=== PATIENT | female | born 1955 | race American Indian/Alaskan Native ===

== ENCOUNTER 2016-12-10 20:24 | Emergency (ER) | payer OTHER ==
[2016-12-11] MEDS ORDERED: ZOFRAN IV ONE (00:19)
[2016-12-11] MEDS ORDERED: MORPHINE IV ONE ×2 (00:19→02:21)
[2016-12-11] MEDS ORDERED: NACL 0.9% 500 ML 500 ML IV ONE (00:20)
[2016-12-11] MEDS ORDERED: CLEOCIN 600 MG/50 mL 600 MG/50 ML BAG IV ONE (00:20)
--- NOTE | 2016-12-11 00:25 | Emergency Department Report ---
ED ENT HPI - General Chief complaint: Dental/Oral Stated complaint: TOOTHACHE/GUM PAIN Time Seen by Provider: 12/11/16 00:09 Source: patient Mode of arrival: Ambulatory Limitations: No Limitations - History of Present Illness Initial comments: 61-year-old female past medical history depression, diabetes, hypertension presents with complaint of right-sided jaw pain/gumline pain and 5 days of rash worsening to left lower extremity. Patient is awake appears to be in pain, states that her right side, as well as her left leg are painful. Denies any fevers or chills. Denies any chest pain no abdominal pain no shortness of breath. Patient visibly pointing at her right tooth/gumline. Patient missing several teeth wears dentures which she has removed. Denies any trauma to the jaw, no recent dental procedures. Asked the patient if she has a morphine allergy she says she does not have. Awake alert and oriented 3 but appears to be very uncomfortable during clinical exam. MD complaint: other (right sided jaw pain/oral pain and left lower extremity rash/discomfort.) Onset/Timin -: days(s) Location: tooth # (patient is missing several teeth, has severe periodontal disease. Indicating she has pain in right side lower gum region where tooth 28 would typically be) Severity: severe Severity scale (0 -10): 8 Quality: sharp Consistency: constant Context- Dental: history of dental caries, poor dental care Associated Symptoms: gum swelling - Related Data Previous Rx's Medication Instructions Recorded Last Taken Type Azithromycin [Zithromax] 500 mg PO QDAY #3 tablet 06/16/14 Unknown Rx Oxycodone HCl/Acetaminophen 1 each PO Q6HR PRN #14 tablet 06/16/14 Unknown Rx [Percocet 7.5-325 mg] Acetaminophen/Codeine [Tylenol 1 tab PO Q6H PRN #10 tab 12/11/16 Unknown Rx /Codeine # 3 tab] Clindamycin [Clindamycin CAP] 300 mg PO Q6H #28 capsule 12/11/16 Unknown Rx Allergies Allergy/AdvReac Type Severity Reaction Status Date / Time ketorolac tromethamine Allergy Anaphylaxis Verified 06/16/14 10:01 [From Toradol] nalbuphine HCl [From Nubain] Allergy Rash Verified 06/16/14 10:01 Sulfa (Sulfonamide Allergy Rash Verified 06/16/14 10:01 Antibiotics) morphine AdvReac Unknown Verified 06/16/14 10:01 ED Dental HPI - General Chief complaint: Dental/Oral Stated complaint: TOOTHACHE/GUM PAIN Time Seen by Provider: 12/11/16 00:09 Source: patient Mode of arrival: Ambulatory Limitations: No Limitations - Related Data Previous Rx's Medication Instructions Recorded Last Taken Type Azithromycin [Zithromax] 500 mg PO QDAY #3 tablet 06/16/14 Unknown Rx Oxycodone HCl/Acetaminophen 1 each PO Q6HR PRN #14 tablet 06/16/14 Unknown Rx [Percocet 7.5-325 mg] Acetaminophen/Codeine [Tylenol 1 tab PO Q6H PRN #10 tab 12/11/16 Unknown Rx /Codeine # 3 tab] Clindamycin [Clindamycin CAP] 300 mg PO Q6H #28 capsule 12/11/16 Unknown Rx Allergies Allergy/AdvReac Type Severity Reaction Status Date / Time ketorolac tromethamine Allergy Anaphylaxis Verified 06/16/14 10:01 [From Toradol] nalbuphine HCl [From Nubain] Allergy Rash Verified 06/16/14 10:01 Sulfa (Sulfonamide Allergy Rash Verified 06/16/14 10:01 Antibiotics) morphine AdvReac Unknown Verified 06/16/14 10:01 ED Review of Systems ROS: Stated complaint: TOOTHACHE/GUM PAIN Other details as noted in HPI Constitutional: denies: chills, fever Eyes: denies: eye pain, eye discharge, vision change ENT: dental pain, other. denies: ear pain, throat pain Respiratory: denies: cough, shortness of breath, wheezing Cardiovascular: denies: chest pain, palpitations Endocrine: no symptoms reported Gastrointestinal: denies: abdominal pain, nausea, diarrhea Genitourinary: denies: urgency, dysuria, discharge Musculoskeletal: denies: back pain, joint swelling, arthralgia Skin: as per HPI, other (left lower extremity anterior redness/erythema on garcai) . denies: rash, lesions Neurological: denies: headache, weakness, paresthesias Psychiatric: denies: anxiety, depression Hematological/Lymphatic: denies: easy bleeding, easy bruising ED Past Medical Hx - Past Medical History Previous Medical History?: Yes Hx Hypertension: Yes Hx Diabetes: Yes - Surgical History Past Surgical History?: Yes Hx Cholecystectomy: Yes Hx Appendectomy: Yes Additional Surgical History: tubal ligation. hyst - Social History Smoking Status: Never Smoker Substance Use Type: None - Medications Home Medications: Home Medications Medication Instructions Recorded Confirmed Last Taken Type Azithromycin [Zithromax] 500 mg PO QDAY #3 tablet 06/16/14 Unknown Rx Oxycodone HCl/Acetaminophen 1 each PO Q6HR PRN #14 tablet 06/16/14 Unknown Rx [Percocet 7.5-325 mg] Acetaminophen/Codeine [Tylenol 1 tab PO Q6H PRN #10 tab 12/11/16 Unknown Rx /Codeine # 3 tab] Clindamycin [Clindamycin CAP] 300 mg PO Q6H #28 capsule 12/11/16 Unknown Rx ED Physical Exam - General Limitations: No Limitations General appearance: alert, in no apparent distress - Head Head exam: Present: atraumatic, normocephalic - Eye Eye exam: Present: normal appearance, PERRL, EOMI - ENT ENT exam: Present: mucous membranes moist, other (patient has severe periodontal disease missing multiple teeth no palpable or visible abscess on face or inside gum line the patient indicating that her right inner gum line is very painful.) - Expanded ENT Exam Expanded Mouth exam: Present: other (there is no tongue swelling and no swelling underneath tongue no induration and floor of mouth signs of Siva's angina) Teeth exam: Present: dental caries (patient has some anterior lower incisors with severe periodontal disease), dental tenderness # (she denies gumline tenderness in the region of tooth #28 however there are no teeth in this region) - Neck Neck exam: Present: normal inspection, full ROM - Respiratory Respiratory exam: Present: normal lung sounds bilaterally. Absent: respiratory distress - Cardiovascular Cardiovascular Exam: Present: regular rate, normal rhythm. Absent: systolic murmur, diastolic murmur, rubs, gallop - GI/Abdominal GI/Abdominal exam: Present: soft, normal bowel sounds - Extremities Exam Extremities exam: Present: normal inspection - Expanded Lower Extremity Exam Left Upper Leg exam: Present: normal inspection, full ROM Knee exam: Present: normal inspection, full ROM Lower Leg exam: Present: tenderness (patient has erythema anterior garcia from pretibial region almost down to the ankle, borders marked) Ankle exam: Present: normal inspection, full ROM Foot/Toe exam: Present: normal inspection - Back Exam Back exam: Present: normal inspection - Neurological Exam Neurological exam: Present: alert, oriented X3 - Psychiatric Psychiatric exam: Present: normal affect, normal mood - Skin Skin exam: Present: warm, dry, intact, normal color. Absent: rash ED Course Vital Signs 12/10/16 12/11/16 23:04 04:36 Temperature 98.1 F 99.2 F Pulse Rate 104 H 72 Respiratory 20 12 Rate Blood Pressure 146/92 172/116 [Right] O2 Sat by Pulse 99 98 Oximetry ED Medical Decision Making - Lab Data Result diagrams: 12/11/16 00:35 12/11/16 00:35 - Medical Decision Making A/P: Jaw pain/dental oral pain, left lower extremity cellulitis, elevated lactic acid 1-patient given dose of IV clindamycin 500 mL normal saline, dose of morphine 2-initial CT infiltrated IV in patient left hand no significant edema in hand, minimal pain to palpation skin appears normal 3-I placed an external jugular 20-gauge IV in patient's right-sided neck to administer further meds and to obtain contrast Ct study. However at this point during clinical progress patient informed me that she had to leave in order to take care of her granddaughter who was at home with her elderly mother. I advised patient to call and make arrangements for her family so that she may stay in the hospital for administration of IV antibiotics and to evaluate her oral cavity and jaw with a CAT scan with contrast. However the patient stated that she needed to leave in order to attend to her domestic matters. I explained to the patient that I was also concerned that she had extravasation of IV contrast into her hand and which requires monitoring for any possible adverse effects including necrosis skin and local tissue to IV. Patient stated she understood my concerns but still needed to leave the hospital. I had this discussion with the patient's in front of BRITTNEY Vazquez. Patient was awake alert and oriented during this conversation. Fully lucid and expressed understanding of the discussion that I had with her. I advised patient that she is at risk for sepsis and if not treated for these conditions. Patient elected to leave AGAINST MEDICAL ADVICE. 4-I will give patient oral clindamycin prescription and short course of pain medicine. Area of cellulitis and borders marked left lower extremity. 5- case discussed with Dr. Graham 6-patient stated that she would go home and make arrangements for her family and then return to the hospital Critical care attestation.: If time is entered above; I have spent that time in minutes in the direct care of this critically ill patient, excluding procedure time. ED Disposition Clinical Impression: Pain in oral cavity, Cellulitis of left leg Disposition: LEFT AGAINST MEDICAL ADVICE Is pt being admited?: No Does the pt Need Aspirin: No Condition: Stable Instructions: Dental Caries (ED), Cellulitis (ED), Against Medical Advice (ED) Additional Instructions: I advised patient to return to the hospital as soon as possible for management of her oral pain as well as left leg cellulitis. Patient left AGAINST MEDICAL ADVICE Prescriptions: Acetaminophen/Codeine [Tylenol /Codeine # 3 tab] 1 tab PO Q6H PRN #10 tab PRN Reason: Pain Clindamycin [Clindamycin CAP] 300 mg PO Q6H #28 capsule Referrals: REGAN KINCAID MD [Staff Physician] - 3-5 Days Forms: AMA Form Time of Disposition: 04:19
[2016-12-11 01:02] LABS: Basophils % (Auto) 0.3 % (0.0-1.8); Hematocrit 29.8 % (30.3-42.9); Hemoglobin 9.4 gm/dl (10.1-14.3); Mean Corpuscular HGB Conc 32 % (30-34); Platelet Count 299 K/mm3 (140-440); Red Blood Count 4.65 M/mm3 (3.65-5.03); White Blood Count 10.4 K/mm3 (4.5-11.0)
[2016-12-11 01:04] LABS: Mean Corpuscular Hemoglobin 20 pg (28-32); Mean Corpuscular Volume 64 fl (79-97); Red Cell Distribution Width 22.2 % (13.2-15.2)
[2016-12-11 01:30] LABS: Blood Urea Nitrogen 22 mg/dL (7-17); Carbon Dioxide 20 mmol/L (22-30)
[2016-12-11 01:31] LABS: Anion Gap 25 mmol/L; Calcium 9.7 mg/dL (8.4-10.2); Chloride 91.4 mmol/L (98-107); Creatine Kinase 266 units/L (30-135); Glucose 143 mg/dL (65-100); Potassium 3.4 mmol/L (3.6-5.0); Sodium 133 mmol/L (137-145)
[2016-12-11] MEDS ORDERED: NACL ONE ×2 (01:50→02:48)
[2016-12-11 04:37] VITALS: BP 172/116
== END 2016-12-11 04:46 | disposition left against medical advice (07) ==
LOC: ED 20:24
DX: L03.116 Cellulitis of left lower limb (principal); K13.79 Other lesions of oral mucosa; I10 Essential (primary) hypertension; E11.9 Type 2 diabetes mellitus without complications; Z88.2 Allergy status to sulfonamides; Z88.5 Allergy status to narcotic agent; Z88.8 Allergy status to other drugs, medicaments and biological substances
CPT/HCPCS: 36415; 80048; 82140; 82550; 85025; 87040; 96365; 96375; 99283; J2270; J2405; J7040

== ENCOUNTER 2016-12-11 09:15 | Inpatient (IN) | payer OTHER ==
[2016-12-11] MEDS ORDERED: NACL 0.9% 1000 ML 1,000 ML IV ONE (10:44)
--- NOTE | 2016-12-11 10:51 | History and Physical Report ---
History of Present Illness Date of examination: 12/11/16 Date of admission: 12/11/16 Chief complaint: Left lower extremity swelling ,redness and pain Dental caries and gum pain History of present illness: Very pleasant 58-year-old -[place] female patient with significant past medical history of diabetes mellitus hypertension dyslipidemia seen by the ER physician last night and recommended admission however patient left AMA due to some personal issues Patient presented today with the complaints of left lower extremity redness swelling over the garcia since she fell and hurt herself 7 months ago patient also has dental caries with gum and jaw pain, patient has an appointment to see dentist. Patient denies any chest pain or shortness of breath Denies headache or dizziness Denies nausea vomiting or abdominal pain, no fever or chills Past History Past Medical History: diabetes, hypertension, other (h/o pulmonary tuberculosis) Past Surgical History: appendectomy, hysterectomy, Other (tubal ligation) Social history: lives with family, smoking, full code. denies: alcohol abuse, prescription drug abuse Family history: hypertension Medications and Allergies Allergies Allergy/AdvReac Type Severity Reaction Status Date / Time ketorolac tromethamine Allergy Anaphylaxis Verified 06/16/14 10:01 [From Toradol] nalbuphine HCl [From Nubain] Allergy Rash Verified 06/16/14 10:01 Sulfa (Sulfonamide Allergy Rash Verified 06/16/14 10:01 Antibiotics) morphine AdvReac Unknown Verified 06/16/14 10:01 Home Medications Medication Instructions Recorded Confirmed Last Taken Type Azithromycin [Zithromax] 500 mg PO QDAY #3 tablet 06/16/14 12/11/16 Unknown Rx Oxycodone HCl/Acetaminophen 1 each PO Q6HR PRN #14 tablet 06/16/14 Unknown Rx [Percocet 7.5-325 mg] Acetaminophen/Codeine [Tylenol 1 tab PO Q6H PRN #10 tab 12/11/16 12/11/16 Unknown Rx /Codeine # 3 tab] Benadryl CAP 25 mg PO Q6H 12/11/16 12/11/16 Unknown History Clindamycin [Clindamycin CAP] 300 mg PO Q6H #28 capsule 12/11/16 12/11/16 Unknown Rx Clopidogrel 75 mg PO DAILY 12/11/16 12/11/16 Unknown History Ferrous Sulfate 325 mg PO DAILY 12/11/16 12/11/16 Unknown History Hydralazine HCl [Apresoline TAB] 100 mg PO Q8H 12/11/16 12/11/16 Unknown History Levemir 20 units SQ QHS 12/11/16 12/11/16 Unknown History NovoLOG Flexpen 8 units SQ AC 12/11/16 12/11/16 Unknown History amLODIPine 10 mg PO DAILY 12/11/16 12/11/16 Unknown History Active Meds: Active Medications Sodium Chloride (Nacl 0.9% 1000 Ml) 1,000 mls @ 999 mls/hr IV BOLUS ONE Stop: 12/11/16 11:44 Vancomycin HCl 1,500 mg/ (Sodium Chloride) 500 mls @ 334 mls/hr IV ONCE ONE PRN Reason: Protocol Stop: 12/11/16 12:13 Piperacillin Sod/Tazobactam Sod (Zosyn/Ns 4.5gm/100ml) 4.5 gm in 100 mls @ 200 mls/hr IV Q6HR DAVONTE PRN Reason: Protocol Review of Systems Constitutional: no weight loss, no weight gain, no fever, no chills Ears, nose, mouth and throat: no nasal congestion, no nasal discharge Cardiovascular: no chest pain, no palpitations, no shortness of breath Respiratory: no cough with sputum, no shortness of breath Gastrointestinal: no abdominal pain, no nausea, no vomiting Genitourinary Female: no flank pain, no dysuria Musculoskeletal: no myalgias, no arthritis Integumentary: no rash, no lesions Neurological: no weakness, no parathesias, no seizures Psychiatric: no anxiety, no depression Endocrine: no cold intolerance, no heat intolerance, no polydipsia, no polyuria Hematologic/Lymphatic: no easy bruising, no easy bleeding Allergic/Immunologic: no urticaria, no allergic rhinitis Exam - Constitutional Vitals: Temp Pulse Resp BP Pulse Ox 98.2 F 94 H 18 150/82 98 12/11/16 09:48 12/11/16 09:48 12/11/16 10:37 12/11/16 09:48 12/11/16 10:37 General appearance: Present: no acute distress, well-nourished - EENT Eyes: Present: PERRL, EOM intact - Neck Neck: Present: supple, normal ROM - Respiratory Respiratory effort: normal Respiratory: negative: rales, rhonchi, wheezing - Cardiovascular Rhythm: regular Heart Sounds: Present: S1 & S2 - Extremities Extremities: no ischemia, pulses intact Extremity abnormal: erythema (left lower extremity cellulitis), other ( cellulitis left lower extremity) - Abdominal General gastrointestinal: Present: soft, non-tender, non-distended, normal bowel sounds - Integumentary Integumentary: Present: clear, warm - Musculoskeletal Musculoskeletal: strength equal bilaterally - Psychiatric Psychiatric: appropriate mood/affect, cooperative - Neurologic Neurologic: CNII-XII intact, moves all extremities Results - Labs CBC & Chem 7: 12/11/16 13:15 Assessment and Plan --Hypokalemia Replenish per protocol and monitor levels --Lactic acidosis/sepsis/SIRS Empiric antibiotics, cultures, supportive care --Cellulitis left leg Blood cultures, IV antibiotics, elevate the limbs Chest disease evaluation if needed --History of trauma 6 months ago History of fall, check x-ray lower extremity to rule out any fractures --Hypertension Moderate control, resume home antihypertensives, when necessary hydralazine --Type 2 diabetes mellitus Accu-Chek sliding scale coverage and ADA diet and insulin Check hemoglobin A1c Diabetic education if needed --History of pulmonary tuberculosis Follows with health Department, not on any medications at this point --Dental caries/gingivitis IV antibiotics and oral care, patient needs to see dental surgeon upon discharge --DVT prophylaxis With Lovenox This closely monitor the patient and adjust the management as needed Patient's condition treatment plan discussed in detail with the patient, family member at the bedside ER physician and the nurse --Full CODE STATUS Disposition admit to medical floor Possible discharge in 1-2 days if stable
--- NOTE | 2016-12-11 11:00 | Admit Criteria Form ---
Admission Criteria Documentation: SEPSIS and OTHER FEBRILE ILLNESS, W/O FOCAL INFECTION Clinical Indications for Admission to Inpatient Care ( Place 'X' for any and all applicable criteria): Admission is indicated for ANY ONE of the following (1)(2)(3)(4): [ ] I. Bacteremia [ ]II. Suspected or identified specific infection requiring hospitalization (eg, meningitis, endocarditis) [ ]III. Hemodynamic instability [ ]IV. Altered mental status [ ]V. Failure or unavailability of outpatient antimicrobial treatment [ ]. Hypoxemia [ ]VII. Seizures [ ]VIII. High-risk febrile neutropenia [ ]IX. Need for parenteral antibiotic in patient who is likely to abuse vascular access device (eg, injection drug user) [A](7) [ ]X. Temperature greater than 104.9 degrees F (40.5 degrees C) (oral) [ X]XI. Inpatient admission required rather than observation care because of ANY ONE of the following: [ X]1) Specific infection identified that is too severe for outpatient treatment or observation care trial [ ]2) Metabolic disorder (eg, hypoglycemia, hyperglycemia, metabolic acidosis) that is severe or persistent [ ]3) Temperature greater than 103.1 degrees F (39.5 degrees C) ( oral) that is not responsive to observation care treatment [ ]4) IV fluid to replace significant ongoing (eg, for over 24 hours) losses (> 3 L/m2 per day) [ ]5) Supplemental oxygen or respiratory treatments for over 24 hours that is performable only in acute inpatient setting [ ]6) Parenteral nutrition regimen need that must be implemented on inpatient basis [ ]7) Strict or protective (eg, laminar flow) isolation [ ]8) Other condition, treatment or monitoring requiring inpatient admission Extended stay beyond goal length of stay may be needed for(1)(3) [ ]a) Sepsis or septic shock(22) [ ]b) Positive blood cultures [ ]c) Insufficient oral intake [ ]d) High-risk febrile neutropenia(29)(30) [ ]e) Continued fever and clinical instability [ ]f) Clinically active comorbid illness (e.g,heart failure, renal failure , diabetes) The original [facility] [employer] content created by Danisha Abel has been revised. The portions of the content which have been revised are identified through the use of italic text or in bold, and Danisha Abel has neither reviewed nor approved the modified material. All other unmodified content is copyright [facility]. Please see references footnoted in the original [facility] edition 2016 Admission Criteria Met: Yes
[2016-12-11] MEDS ORDERED: VANCOMYCIN/NS 1 GM/250 ML 1 GM/250 ML BAG IV SCH (12:00)
[2016-12-11] MEDS ORDERED: VANCOMYCIN PHARMACY TO DOSE IV SCH (13:00)
[2016-12-11] MEDS ORDERED: VANCOMYCIN VIAL 1,500 MG in NACL 0.9% 500 ML 500 ML IV ONE (13:00)
[2016-12-11] MEDS ORDERED: BENADRYL IV ONE ×2 (13:38→17:00)
[2016-12-11] MEDS ORDERED: BENADRYL PO PRN (13:39)
[2016-12-11 13:55] LABS: Anion Gap 20 mmol/L; BUN/Creatinine Ratio 24.44; Blood Urea Nitrogen 22 mg/dL (7-17); Calcium 9.2 mg/dL (8.4-10.2); Carbon Dioxide 21 mmol/L (22-30); Chloride 97.1 mmol/L (98-107); Glucose 151 mg/dL (65-100); Potassium 3.3 mmol/L (3.6-5.0); Sodium 135 mmol/L (137-145)
[2016-12-11] MEDS ORDERED: LEVAQUIN 750MG/150ML 750 MG/150 ML BAG IV SCH (14:00)
[2016-12-11] MEDS ORDERED: TYLENOL #3 PO PRN (15:02)
--- NOTE | 2016-12-11 15:09 | XRay Report ---
Single view chest: History: Right PICC line placement. Findings: Normal cardiomediastinal silhouette. Trachea is midline. Tip of right PICC line in upper superior vena cava. No consolidation, pneumothorax or pleural effusion. Impression: No acute cardiopulmonary findings.
[2016-12-11] MEDS ORDERED: HYDRALAZINE HCL 100 MG PO SCH (15:15)
[2016-12-11] MEDS: APRESOLINE PO SCH ×2 (15:49→21:18)
[2016-12-11] MEDS: NACL 0.9% 1000 ML 1,000 ML IV SCH (15:50)
[2016-12-11] MEDS ORDERED: K-DUR PO ONE (16:00)
[2016-12-11] MEDS: MORPHINE IV PRN ×2 (16:32→21:17)
[2016-12-11] MEDS ORDERED: BANOPHEN ANTI-ITCH TP PRN (17:17)
[2016-12-11] MEDS: NOVOLOG SUB-Q SCH ×2 (17:22→23:21)
[2016-12-11] MEDS ORDERED: ZOSYN/NS 4.5GM/100ML 4.5 GM/100 ML VIAL IV SCH (18:00)
[2016-12-11] MEDS: BENADRYL PO PRN (21:17)
[2016-12-11] MEDS: PEPCID PO SCH (21:18)
[2016-12-11] MEDS: LOVENOX SUB-Q SCH (21:22)
--- NOTE | 2016-12-11 21:38 | Emergency Department Report ---
Entered by LAKESHIA DOUGLASS, acting as scribe for JESSIKA HILL NP. - General Chief complaint: Skin/Abscess/Foreign Body Stated complaint: LEG INFECTED Source: patient Mode of arrival: Wheelchair Limitations: No Limitations - History of Present Illness Initial comments: 61 year old female with a PMHx of depression, HTN, and IDDM presents to the ED c /o intermittent cellulites on left lower leg for 6 days. Patient states she fell 7 months ago and subsequently received an abrasion on left lower leg, which worsened 6 days ago. Patient was seen in this ED on 12/10/2016 and left AMA. Patient was told she needed to be admitted, but she left due to a family emergency. She was prescribed antibiotics, Clindamycin. Rates associated pain a 9/10 in severity. Denies purulent drainage, chest pain, SOB, fever, chills, nausea, vomiting, and abdominal pain. Patient also c/o dental caries. Associated symptom include gum pain, but she denies ear pain, eye pain, sore throat, and headache. Denies any trauma to jaw or recent dental procedures. Patient missing several teeth and wear dentures, which she removed. MD complaint: other (cellulitis) Onset/Timin -: days(s) Tetanus Up to Date: unsure Location: LLE (left lower leg) Severity: moderate Severity scale (0 -10): 9 Quality: aching Consistency: constant Improves with: none Worsens with: none Context: none Associated symptoms: denies other symptoms Treatments Prior to Arrival: none, antibiotic (Clindamycin) - Related Data Previous Rx's Medication Instructions Recorded Last Taken Type Azithromycin [Zithromax] 500 mg PO QDAY #3 tablet 06/16/14 Unknown Rx Oxycodone HCl/Acetaminophen 1 each PO Q6HR PRN #14 tablet 06/16/14 Unknown Rx [Percocet 7.5-325 mg] Acetaminophen/Codeine [Tylenol 1 tab PO Q6H PRN #10 tab 12/11/16 Unknown Rx /Codeine # 3 tab] Clindamycin [Clindamycin CAP] 300 mg PO Q6H #28 capsule 12/11/16 Unknown Rx Allergies Allergy/AdvReac Type Severity Reaction Status Date / Time ketorolac tromethamine Allergy Anaphylaxis Verified 06/16/14 10:01 [From Toradol] nalbuphine HCl [From Nubain] Allergy Rash Verified 06/16/14 10:01 Sulfa (Sulfonamide Allergy Rash Verified 06/16/14 10:01 Antibiotics) morphine AdvReac Unknown Verified 06/16/14 10:01 Abscess Boil HPI - HPI Chief Complaint: Skin/Abscess/Foreign Body Stated Complaint: LEG INFECTED Duration: 6 Days Location: Lower Extremity (left lower leg) Severity: Moderate History: Yes Pain, No Fever, No Purulent Drainage, No Numbness, No Foreign Body , No Previous History, No Insect Bite Home Medications: Previous Rx's Medication Instructions Recorded Last Taken Type Azithromycin [Zithromax] 500 mg PO QDAY #3 tablet 06/16/14 Unknown Rx Oxycodone HCl/Acetaminophen 1 each PO Q6HR PRN #14 tablet 06/16/14 Unknown Rx [Percocet 7.5-325 mg] Acetaminophen/Codeine [Tylenol 1 tab PO Q6H PRN #10 tab 12/11/16 Unknown Rx /Codeine # 3 tab] Clindamycin [Clindamycin CAP] 300 mg PO Q6H #28 capsule 12/11/16 Unknown Rx Allergies/Adverse Reactions: Allergies Allergy/AdvReac Type Severity Reaction Status Date / Time ketorolac tromethamine Allergy Anaphylaxis Verified 06/16/14 10:01 [From Toradol] nalbuphine HCl [From Nubain] Allergy Rash Verified 06/16/14 10:01 Sulfa (Sulfonamide Allergy Rash Verified 06/16/14 10:01 Antibiotics) morphine AdvReac Unknown Verified 06/16/14 10:01 ED Review of Systems Comment: All other systems reviewed and negative Constitutional: denies: chills, fever Eyes: denies: eye pain, eye discharge, vision change ENT: dental pain. denies: ear pain, throat pain Respiratory: denies: cough, shortness of breath, wheezing Cardiovascular: denies: chest pain, palpitations Endocrine: no symptoms reported Gastrointestinal: denies: abdominal pain, nausea, vomiting, diarrhea Genitourinary: denies: urgency, dysuria, discharge Musculoskeletal: denies: back pain, joint swelling, arthralgia Skin: as per HPI, other (left lower extremity anterior redness/erythema on garcia) . denies: rash, lesions Neurological: denies: headache, weakness, paresthesias Psychiatric: denies: anxiety, depression Hematological/Lymphatic: denies: easy bleeding, easy bruising ED Past Medical Hx - Past Medical History Hx Hypertension: Yes Hx Diabetes: Yes - Surgical History Hx Cholecystectomy: Yes Hx Appendectomy: Yes Additional Surgical History: tubal ligation. hyst - Social History Smoking Status: Current Every Day Smoker Substance Use Type: None - Medications Home Medications: Home Medications Medication Instructions Recorded Confirmed Last Taken Type Azithromycin [Zithromax] 500 mg PO QDAY #3 tablet 06/16/14 Unknown Rx Oxycodone HCl/Acetaminophen 1 each PO Q6HR PRN #14 tablet 06/16/14 Unknown Rx [Percocet 7.5-325 mg] Acetaminophen/Codeine [Tylenol 1 tab PO Q6H PRN #10 tab 12/11/16 Unknown Rx /Codeine # 3 tab] Clindamycin [Clindamycin CAP] 300 mg PO Q6H #28 capsule 12/11/16 Unknown Rx ED Physical Exam - General Limitations: No Limitations General appearance: alert, in no apparent distress - Head Head exam: Present: atraumatic, normocephalic - Eye Eye exam: Present: normal appearance, PERRL, EOMI - ENT ENT exam: Present: mucous membranes moist, other (patient has severe periodontal disease missing multiple teeth no palpable or visible abscess on face or inside gum line the patient indicating that her right inner gum line is very painful) - Expanded ENT Exam Expanded Mouth exam: Present: other (there is no tongue swelling and no swelling underneath tongue no induration and floor of mouth signs of Siva's angina) Teeth exam: Present: dental caries (patient has some anterior lower incisors with severe periodontal disease), dental tenderness # (she denies gumline tenderness in the region of tooth #28 however there are no teeth in this region) - Neck Neck exam: Present: normal inspection, full ROM - Respiratory Respiratory exam: Present: normal lung sounds bilaterally. Absent: respiratory distress - Cardiovascular Cardiovascular Exam: Present: regular rate, normal rhythm. Absent: systolic murmur, diastolic murmur, rubs, gallop - GI/Abdominal GI/Abdominal exam: Present: soft, normal bowel sounds - Extremities Exam Extremities exam: Present: normal inspection, other (cellulitic abrasion on left lower leg) - Expanded Lower Extremity Exam Left Upper Leg exam: Present: normal inspection, full ROM Knee exam: Present: normal inspection, full ROM Lower Leg exam: Present: tenderness (patient has erythema anterior garcia from pretibial region almost down to the ankle, borders marked) Ankle exam: Present: normal inspection, full ROM Foot/Toe exam: Present: normal inspection Neuro vascular tendon exam: Present: no vascular compromise Gait: Positive: observed and normal - Back Exam Back exam: Present: normal inspection - Neurological Exam Neurological exam: Present: alert, oriented X3, CN II-XII intact, normal gait - Psychiatric Psychiatric exam: Present: normal affect, normal mood - Skin Skin exam: Present: warm, dry, intact, normal color. Absent: rash ED Course Vital Signs 12/11/16 12/11/16 12/11/16 09:48 10:37 11:46 Temperature 98.2 F Pulse Rate 94 H 98 H Respiratory 18 18 18 Rate Blood Pressure 150/82 Blood Pressure 148/76 [Left] O2 Sat by Pulse 96 98 96 Oximetry - Reevaluation(s) Reevaluation #1: 12/11/16 11:18 Dr. Sandoval is aware of patient and admission. Reevaluation #2: 12/11/16 11:18 Dr. Woody has accepted the patient to her services. Wants vancomycin and Zosyn IV started in the ED. Reevaluation #3: 12/11/16 11:53 RN Rowena put a 24g IV lock to left breast/chest area. ED Medical Decision Making - Medical Decision Making Ed course: This is a 61-year-old female that presents with cellulitis to the left leg 1- patient was seen last night and was told to be admitted for sepsis by Dr. Graham. Patient left AMA and return to be admitted. Dr. Sandoval aware of the patient in admission. Patient admitted to Dr. Woody services. Dr. Woody requested for vancomycin and Zosyn IV in the ED to be administered. 2- At this time the patient does not seem toxic or ill in apperance . No signs of distress noted. Patient agrees to treatment plan with no further questions noted. ED Disposition Clinical Impression: Cellulitis Disposition: OP ADMITTED IP TO THIS HOSP Is pt being admited?: Yes Does the pt Need Aspirin: No Condition: Stable This documentation as recorded by the EVONNE barclay JASMINE,accurately reflects the service I personally performed and the decisions made by ,JESSIKA HILL NP.
[2016-12-11] MEDS: LEVEMIR SUB-Q SCH (23:22)
[2016-12-11] MEDS: PERCOCET 5/325 PO PRN (23:27)
[2016-12-12] MEDS ORDERED: BENADRYL PO ONE (00:22)
[2016-12-12] MEDS: ZOSYN/NS 4.5GM/100ML 4.5 GM/100 ML VIAL IV SCH ×4 (04:48→23:36)
[2016-12-12] MEDS: MORPHINE IV PRN ×2 (04:50→12:00)
[2016-12-12] MEDS: APRESOLINE PO SCH ×3 (05:05→21:00)
[2016-12-12] MEDS: VANCOMYCIN/NS 1 GM/250 ML 1 GM/250 ML BAG IV SCH ×2 (06:54→17:39)
[2016-12-12] MEDS: PERCOCET 5/325 PO PRN (08:19)
[2016-12-12] MEDS: NOVOLOG SUB-Q SCH ×4 (08:20→22:00)
[2016-12-12] MEDS: BENADRYL PO PRN (08:31)
[2016-12-12] MEDS ORDERED: NON-FORMULARY (Amlodipine 10 MG) PO SCH (10:00)
[2016-12-12] MEDS ORDERED: NON-FORMULARY (Clopidogrel 75 MG) PO SCH (10:00)
[2016-12-12] MEDS: PEPCID PO SCH ×2 (10:32→21:00)
[2016-12-12] MEDS: NORVASC PO SCH (10:32)
[2016-12-12] MEDS ORDERED: MORPHINE IV PRN (11:05)
--- NOTE | 2016-12-12 11:10 | XRay Report ---
LEFT TIBIA AND FIBULA TWO VIEWS: 12/11/16 11:10:00 CLINICAL: History of trauma. Pain and swelling area in FINDINGS: No fracture or dislocation. Normal soft tissues.No soft tissue air or foreign body. IMPRESSION: Normal.
[2016-12-12] MEDS: NACL 0.9% 1000 ML 1,000 ML IV SCH (11:57)
[2016-12-12] MEDS ORDERED: HYDROCORTISONE CR TP PRN (14:25)
[2016-12-12] MEDS: BENADRYL IV PRN ×2 (14:37→20:48)
--- NOTE | 2016-12-12 16:00 | Progress Note ---
Assessment and Plan Assessment and plan: --Cellulitis left leg Swelling and erythema significantly improved X-ray lower extremity no fracture, no abnormality or abscess Blood cultures negative to date, IV antibiotics, elevate the limbs Lower extremity venous Doppler, negative for DVT --Hypokalemia: Corrected --Lactic acidosis/sepsis/SIRS Lactic acid levels within normal limits --History of trauma 6 months ago History of fall, check x-ray lower extremity no fractures --Hypertension Moderate control, resume home antihypertensives, when necessary hydralazine --Type 2 diabetes mellitus Accu-Chek sliding scale coverage and ADA diet and insulin Check hemoglobin A1c, Diabetic education if needed --History of pulmonary tuberculosis Follows with health Department, not on any medications at this point --Dental caries/gingivitis Significantly improved, continue IV antibiotics and oral care, patient needs to see dental surgeon upon discharge --DVT prophylaxis With Lovenox --Full CODE STATUS Patient symptoms significantly improved, cultures negative to date Workup is negative, possible discharge in 1-2 days on oral antibiotics if stable Patient's condition treatment plan discussed in detail with the patient, As well as the nurse and charge nurse History Interval history: Patient seen and evaluated in her room medical records reviewed Patient complains of pain and itching all over the body and asked for more pain medications and more Benadryl Denies any chest pain or shortness of breath Left lower extremity swelling significantly improved Alert awake oriented 3 not in acute distress Vital Signs reviewed stable Hospitalist Physical - Constitutional Vitals: Temp Pulse Resp BP Pulse Ox 98.3 F 84 20 170/84 100 12/12/16 07:40 12/12/16 07:40 12/12/16 07:40 12/12/16 07:40 12/12/16 07:40 General appearance: Present: no acute distress, well-nourished - EENT Eyes: Present: PERRL, EOM intact - Neck Neck: Present: supple, normal ROM - Respiratory Respiratory effort: normal Respiratory: bilateral: diminished, negative: rales, rhonchi, wheezing - Cardiovascular Rhythm: regular Heart Sounds: Present: S1 & S2 - Extremities Extremities: no ischemia, pulses intact, pulses symmetrical, abnormal (left lower extremity swelling significantly improved mild erythema) Peripheral Pulses: within normal limits - Abdominal General gastrointestinal: soft, non-tender, non-distended, normal bowel sounds - Integumentary Integumentary: Present: clear, warm - Psychiatric Psychiatric: appropriate mood/affect, cooperative - Neurologic Neurologic: CNII-XII intact, moves all extremities Results - Labs CBC & Chem 7: 12/11/16 13:15 Labs: Laboratory Last Values ESR 60 mm/Hr (0-20) 12/11/16 13:15 Sodium 135 mmol/L (137-145) L 12/11/16 13:15 Potassium 3.3 mmol/L (3.6-5.0) L 12/11/16 13:15 Chloride 97.1 mmol/L (98-107) L 12/11/16 13:15 Carbon Dioxide 21 mmol/L (22-30) L 12/11/16 13:15 Anion Gap 20 mmol/L 12/11/16 13:15 BUN 22 mg/dL (7-17) H 12/11/16 13:15 Creatinine 0.9 mg/dL (0.7-1.2) 12/11/16 13:15 Estimated GFR > 60 ml/min 12/11/16 13:15 BUN/Creatinine Ratio 24.44 % 12/11/16 13:15 Glucose 151 mg/dL (65-100) H 12/11/16 13:15 POC Glucose 192 (70-105) H 12/12/16 11:26 Lactic Acid 0.60 mmol/L (0.7-2.0) L 12/12/16 07:00 Calcium 9.2 mg/dL (8.4-10.2) 12/11/16 13:15 C-Reactive Protein 5.40 mg/dL (0.00-1.30) H 12/11/16 13:15
[2016-12-12] MEDS: PLAVIX PO SCH (17:40)
[2016-12-12] MEDS: DILAUDID IV PRN ×2 (18:04→23:41)
[2016-12-12] MEDS: LOVENOX SUB-Q SCH (22:00)
[2016-12-12] MEDS: LEVEMIR SUB-Q SCH (22:00)
[2016-12-13] MEDS: ZOSYN/NS 4.5GM/100ML 4.5 GM/100 ML VIAL IV SCH (04:54)
[2016-12-13] MEDS: APRESOLINE PO SCH (05:07)
[2016-12-13 06:07] LABS: Basophils % (Auto) 0.3 % (0.0-1.8); Eosinophils % (Auto) 4.9 % (0.0-4.3); Hematocrit 27.2 % (30.3-42.9); Hemoglobin 8.4 gm/dl (10.1-14.3); Mean Corpuscular HGB Conc 31 % (30-34); Platelet Count 285 K/mm3 (140-440); White Blood Count 8.1 K/mm3 (4.5-11.0)
[2016-12-13 06:09] LABS: Mean Corpuscular Volume 65 fl (79-97)
[2016-12-13 06:10] LABS: Mean Corpuscular Hemoglobin 20 pg (28-32); Red Cell Distribution Width 22.6 % (13.2-15.2)
[2016-12-13] MEDS: VANCOMYCIN/NS 1 GM/250 ML 1 GM/250 ML BAG IV SCH (06:10)
[2016-12-13 06:40] LABS: Anion Gap 15 mmol/L; BUN/Creatinine Ratio 11.66; Blood Urea Nitrogen 7 mg/dL (7-17); Calcium 8.5 mg/dL (8.4-10.2); Carbon Dioxide 25 mmol/L (22-30); Chloride 100.9 mmol/L (98-107); Glucose 136 mg/dL (65-100); Potassium 3.5 mmol/L (3.6-5.0); Sodium 137 mmol/L (137-145)
[2016-12-13] MEDS: BENADRYL IV PRN (07:01)
--- NOTE | 2016-12-13 08:17 | Discharge Summary ---
Providers - Providers Date of Admission: 12/11/16 11:10 Date of discharge: 12/13/16 Attending physician: SANTI TELLEZ 12/11/16 11:52 Consult to PICC Line RN [CONS] Routine Reason For Exam: need picc line Type Line:: PICC 12/11/16 12:14 Consult to Wound/ET Nurse [CONS] Routine Reason For Exam: wound eval/cellulitis Primary care physician: PHOTO LAB MANAGER Hospitalization Reason for admission: lower extremity cellulitis/lactic acidosis Condition: Stable Pertinent studies: Chest x-ray; no acute cardiopulmonary abnormality noted Extremity left tibia and fibula fracture or dislocation normal soft tissue no soft tissue areas or foreign body Lower extremity venous Doppler; negative for DVT Blood cultures negative to date lactic acid improved from 2.7-0.6 Hospital course: Very pleasant 58-year-old -[place] female patient sustained left lower extremity injury 7 months ago developed lower extremity swelling and redness and pain for the last few days patient was initially evaluated and noted to have cellulitis of the lower extremities with the lactic acidosis admitted to the hospital managed with empiric antibiotics vancomycin and Zosyn and supportive care patient but cultures were negative to date extreme lower extremity negative for any soft tissue abnormality no fractures or dislocations noted extremity venous Doppler negative for DVT patient's symptoms significantly improved patient also reports some allergic reaction to some medication started in healthcare Department the names of which patient is markedly atrophic and patient is managed with antihistamines Benadryl and supportive care patient's symptoms significantly improved and is comfortable in bed alert awake oriented 3 ambulatory and tolerated oral nutrition denies any pain and shortness of breath, cough patient also has some dental cavities for which she received antibiotics with significant improvement patient also advised to follow up with dental surgeon for further evaluation for scaly stool [id number] evaluation and physical examination done by me. Discharge is unremarkable as detailed below patient is hemodynamically and clinically stable and advised to follow with primary care physician in one to 2 days Patient also advised antibiotics Cipro and Clinda to be taken for additional one week Patient's blood sugars blood pressures closely monitored and medications were optimized Smoking cessation counseling done patientadvised strongly to quit tobacco use and he uses nicotine patch Patient verbalized understanding I spent 10 minutes counseling the patient Final diagnosis; Cellulitis left lower leg Hypokalemia corrected Lactic acidosis secondary to sepsis improved history of trauma, no fracture on x-ray Type 2 diabetes mellitus Hypertension Dental caries History of metabolic alkalosis follows with health Department Disposition: DISCHARGED TO HOME OR SELFCARE Time spent for discharge: 32 MIN Core Measure Documentation - Palliative Care Palliative Care/ Comfort Measures: Not Applicable - Core Measures Any of the following diagnoses?: none Exam - Constitutional Vitals: Temp Pulse Resp BP Pulse Ox 98.3 F 77 16 159/77 100 12/13/16 05:00 12/13/16 06:35 12/13/16 06:35 12/13/16 06:35 12/13/16 05:00 General appearance: Present: no acute distress, well-nourished - EENT Eyes: Present: PERRL, EOM intact - Neck Neck: Present: supple, normal ROM - Respiratory Respiratory effort: normal Respiratory: negative: rales, rhonchi, wheezing - Cardiovascular Rhythm: regular Heart Sounds: Present: S1 & S2 - Extremities Extremities: no ischemia, pulses intact, pulses symmetrical, abnormal (swelling reduced) - Abdominal General gastrointestinal: Present: soft, non-tender, non-distended, normal bowel sounds - Integumentary Integumentary: Present: clear, warm - Musculoskeletal Musculoskeletal: strength equal bilaterally - Psychiatric Psychiatric: appropriate mood/affect, cooperative - Neurologic Neurologic: CNII-XII intact, moves all extremities Plan Activity: no restrictions Diet: diabetic Special Instructions: smoking cessation Follow up with: PRIMARY CARE, [Primary Care Provider] - 3-5 Days Prescriptions: Ciprofloxacin HCl [Ciprofloxacin TAB] 500 mg PO Q12H #14 tab Clindamycin [Clindamycin CAP] 300 mg PO Q6H #28 capsule Oxycodone HCl/Acetaminophen [Percocet 7.5/325 mg] 1 each PO Q12H PRN #14 tablet PRN Reason: Pain
[2016-12-13] MEDS: NOVOLOG SUB-Q SCH (09:08)
[2016-12-13 09:19] VITALS: BP 189/102
[2016-12-13] MEDS ORDERED: PERCOCET 5/325 PO ONE (09:22)
[2016-12-13] MEDS: NORVASC PO SCH (10:19)
[2016-12-13] MEDS: PLAVIX PO SCH (10:19)
[2016-12-13] MEDS: PEPCID PO SCH (10:19)
== END 2016-12-13 12:00 | disposition home or self-care (01) | DRG 872 ==
LOC: ED 09:15 → 3A 11:10
PROVIDERS: ADMIT Internal Medicine; ATTEND Internal Medicine
PROC: 02HV33Z Insertion of Infusion Device into Superior Vena Cava, Percutaneous Approach (ICD-10-PCS; principal; 2016-12-11)
DX: A41.9 Sepsis, unspecified organism (principal); L03.116 Cellulitis of left lower limb; F32.9 Major depressive disorder, single episode, unspecified; E11.9 Type 2 diabetes mellitus without complications; E78.5 Hyperlipidemia, unspecified; E87.6 Hypokalemia; Z88.5 Allergy status to narcotic agent; Z88.2 Allergy status to sulfonamides; Z88.8 Allergy status to other drugs, medicaments and biological substances; Z90.49 Acquired absence of other specified parts of digestive tract; Z98.51 Tubal ligation status; Z79.2 Long term (current) use of antibiotics; Z79.899 Other long term (current) drug therapy; Z82.49 Family history of ischemic heart disease and other diseases of the circulatory system; Z86.11 Personal history of tuberculosis
CPT/HCPCS: 36415; 71010; 80048; 82140; 82962; 83036; 85025; 85652; 86140; 87040; A6250; J1170; J1200; J1650; J1815; J1818; J2270; J2543; J3370; J7030; J7040

== ENCOUNTER 2017-04-11 20:26 | Emergency (ER) | payer OTHER ==
--- NOTE | 2017-04-11 21:48 | Cat Scan Report ---
FINAL REPORT PROCEDURE: CT HEAD/BRAIN WO CON TECHNIQUE: Computerized tomography of the head was performed without contrast material. HISTORY: fall w/ loc on plavix COMPARISON: No prior studies are available for comparison. FINDINGS: Skull and scalp: Normal. Paranasal sinuses: There is diffuse mucosal thickening of left maxillary sinus.. Ventricles and subarachnoid spaces: Normal. Cerebrum: Mild degree bilateral periventricular nonspecific white matter hypodensity is noted. An acute intracranial hemorrhage or mass effect is not identified atherosclerotic calcification is noted involving bilateral internal carotid arteries and bilateral vertebral arteries.. Cerebellum and brainstem: No evidence of hemorrhage, acute infarction or mass. Vasculature: Normal. Comments: Mild degree soft tissue subcutaneous induration is identified involving left cheek.. IMPRESSION: No acute intracranial abnormality. Nonspecific central white matter hypodensity most likely represents chronic microangiopathy. Chronic left maxillary sinusitis.
--- NOTE | 2017-04-11 21:50 | XRay Report ---
FINAL REPORT PROCEDURE: XR HUMERUS 2+V RT TECHNIQUE: Laterality shoulder radiographs including AP views in internal and external rotation and abduction. CPT 46120 HISTORY: fall RT HUMERUS PAIN COMPARISON: No prior studies are available for comparison. FINDINGS: Fracture (s) and/or Dislocation(s): None . Joint space(s): Normal . Soft tissues: Normal . Bone mineralization: Normal . Foreign bodies: None . There are small calcified nodules in the visualized right lung IMPRESSION: No acute fracture. Calcified granulomas in the right lung
--- NOTE | 2017-04-11 21:52 | XRay Report ---
FINAL REPORT PROCEDURE: XR SHOULDER 2+V RT TECHNIQUE: Right shoulder radiographs including AP views in internal and external rotation and abduction. CPT 75462 HISTORY: fall RT SHOULDER PAIN COMPARISON: No prior studies are available for comparison. FINDINGS: Fracture (s) and/or Dislocation(s): None . Joint space(s): The there is increased acromioclavicular joint space.. Soft tissues: Normal . Bone mineralization: Normal . Foreign bodies: None . Small calcified granulomas are noted in the visualized right lung IMPRESSION: Increased acromioclavicular joint space is suspicious for subluxation. Weightbearing images may be recommended. No acute fracture.
[2017-04-11 22:31] LABS: Anion Gap 22 mmol/L; BUN/Creatinine Ratio 28.88; Blood Urea Nitrogen 26 mg/dL (7-17); Calcium 9.2 mg/dL (8.4-10.2); Carbon Dioxide 20 mmol/L (22-30); Chloride 99.3 mmol/L (98-107); Glucose 253 mg/dL (65-100); Potassium 3.8 mmol/L (3.6-5.0); Sodium 137 mmol/L (137-145)
[2017-04-11 22:52] LABS: Hematocrit 30.5 % (30.3-42.9); Hemoglobin 9.3 gm/dl (10.1-14.3); Mean Corpuscular HGB Conc 31 % (30-34); Platelet Count 314 K/mm3 (140-440); Red Blood Count 4.41 M/mm3 (3.65-5.03); Red Cell Distribution Width 19.7 % (13.2-15.2); White Blood Count 14.8 K/mm3 (4.5-11.0)
[2017-04-11 22:59] LABS: Mean Corpuscular Hemoglobin 21 pg (28-32); Mean Corpuscular Volume 69 fl (79-97)
[2017-04-11 23:03] LABS: INR 0.98 (0.87-1.13)
[2017-04-11 23:04] LABS: Partial Thromboplastin Time 30.3 Sec. (24.2-36.6)
[2017-04-12] MEDS ORDERED: MORPHINE IM ONE (00:47)
[2017-04-12 02:06] VITALS: BP 142/84
--- NOTE | 2017-04-12 02:26 | Emergency Department Report ---
ED General Adult HPI - General Chief complaint: Fall Stated complaint: LT AND RT LOWER LEG PAIN Time Seen by Provider: 04/12/17 00:32 Source: patient Mode of arrival: Ambulatory Limitations: No Limitations - History of Present Illness Initial comments: Patient is a 61-year-old female past medical history hypertension and who presents with status post fall. Patient states that she fell last night on her right arm and side patient states that the pain as a 9 out of 10 rates from her right shoulder down to her fingers and right hand she states that she can't lift her right arm secondary to TIAs in the pain. Patient also has a bruise on her left thigh and has headache since the fall. Patient states that she was also recently hospitalized and hasn't epidural nerve back. Patient denies having any fever or any nausea. Patient had no loss of consciousness. Patient is currently on Plavix for her TIAs. Severity scale (0 -10): 0 - Related Data Home Medications Medication Instructions Recorded Confirmed Last Taken Benadryl CAP 25 mg PO Q6H 12/11/16 12/11/16 Unknown Clopidogrel 75 mg PO DAILY 12/11/16 12/11/16 Unknown Ferrous Sulfate 325 mg PO DAILY 12/11/16 12/11/16 Unknown Hydralazine HCl [Apresoline TAB] 100 mg PO Q8H 12/11/16 12/11/16 Unknown Levemir 20 units SQ QHS 12/11/16 12/11/16 Unknown NovoLOG Flexpen 8 units SQ AC 12/11/16 12/11/16 Unknown amLODIPine 10 mg PO DAILY 12/11/16 12/11/16 Unknown Previous Rx's Medication Instructions Recorded Last Taken Type Ciprofloxacin HCl [Ciprofloxacin 500 mg PO Q12H #14 tab 12/13/16 Unknown Rx TAB] Clindamycin [Clindamycin CAP] 300 mg PO Q6H #28 capsule 12/13/16 Unknown Rx Oxycodone HCl/Acetaminophen 1 each PO Q12H PRN #14 tablet 12/13/16 Unknown Rx [Percocet 7.5/325 mg] Acetaminophen [Tylenol] 1,000 mg PO Q6HR PRN #30 tablet 04/12/17 Unknown Rx Bacitracin Zinc Oint [Antibiotic 1 applicatio TP BID #1 tube 04/12/17 Unknown Rx Oint] Allergies Allergy/AdvReac Type Severity Reaction Status Date / Time ketorolac tromethamine Allergy Anaphylaxis Verified 06/16/14 10:01 [From Toradol] lisinopril Allergy Angioedema Verified 04/11/17 20:35 nalbuphine HCl [From Nubain] Allergy Rash Verified 06/16/14 10:01 Sulfa (Sulfonamide Allergy Rash Verified 06/16/14 10:01 Antibiotics) morphine AdvReac Unknown Verified 06/16/14 10:01 ED Review of Systems ROS: Stated complaint: LT AND RT LOWER LEG PAIN Other details as noted in HPI Constitutional: denies: chills, fever Eyes: denies: eye pain, eye discharge, vision change ENT: denies: ear pain, throat pain Respiratory: denies: cough, shortness of breath, wheezing Cardiovascular: denies: chest pain, palpitations Endocrine: no symptoms reported Gastrointestinal: denies: abdominal pain, nausea, diarrhea Genitourinary: denies: urgency, dysuria, discharge Musculoskeletal: arthralgia, myalgia. denies: back pain, joint swelling Skin: denies: rash, lesions Neurological: denies: headache, weakness, paresthesias Psychiatric: denies: anxiety, depression Hematological/Lymphatic: denies: easy bleeding, easy bruising ED Past Medical Hx - Past Medical History Previous Medical History?: Yes Hx Hypertension: Yes Hx CVA: Yes (Multiple TIA's on Plavix) Hx Diabetes: Yes Hx Deep Vein Thrombosis: (?) Hx Headaches / Migraines: Yes Hx Tuberculosis: Yes (Patient states she does not have) Additional medical history: Sickle Cell Trait - Surgical History Hx Pacemaker: No Hx Internal Defibrillator: No Hx Cholecystectomy: Yes Hx Appendectomy: Yes Additional Surgical History: tubal ligation. hyst - Social History Smoking Status: Current Some Day Smoker Substance Use Type: None - Medications Home Medications: Home Medications Medication Instructions Recorded Confirmed Last Taken Type Benadryl CAP 25 mg PO Q6H 12/11/16 12/11/16 Unknown History Clopidogrel 75 mg PO DAILY 12/11/16 12/11/16 Unknown History Ferrous Sulfate 325 mg PO DAILY 12/11/16 12/11/16 Unknown History Hydralazine HCl [Apresoline TAB] 100 mg PO Q8H 12/11/16 12/11/16 Unknown History Levemir 20 units SQ QHS 12/11/16 12/11/16 Unknown History NovoLOG Flexpen 8 units SQ AC 12/11/16 12/11/16 Unknown History amLODIPine 10 mg PO DAILY 12/11/16 12/11/16 Unknown History Ciprofloxacin HCl [Ciprofloxacin 500 mg PO Q12H #14 tab 12/13/16 Unknown Rx TAB] Clindamycin [Clindamycin CAP] 300 mg PO Q6H #28 capsule 12/13/16 Unknown Rx Oxycodone HCl/Acetaminophen 1 each PO Q12H PRN #14 tablet 12/13/16 Unknown Rx [Percocet 7.5/325 mg] Acetaminophen [Tylenol] 1,000 mg PO Q6HR PRN #30 tablet 04/12/17 Unknown Rx Bacitracin Zinc Oint [Antibiotic 1 applicatio TP BID #1 tube 04/12/17 Unknown Rx Oint] ED Physical Exam - General Limitations: No Limitations General appearance: alert, in no apparent distress - Head Head exam: Present: normocephalic, other (bruising around the left eye tender to palpation) - Eye Eye exam: Present: normal appearance - ENT ENT exam: Present: mucous membranes moist - Neck Neck exam: Present: normal inspection - Respiratory Respiratory exam: Present: normal lung sounds bilaterally. Absent: respiratory distress - Cardiovascular Cardiovascular Exam: Present: regular rate, normal rhythm. Absent: systolic murmur, diastolic murmur, rubs, gallop - GI/Abdominal GI/Abdominal exam: Present: soft, normal bowel sounds - Extremities Exam Extremities exam: Present: other (patient is good cap refill no deformity slightly tender to palpation on right shoulder. Patient is able to move her right shoulder and is able to ambulatory without difficulty) - Back Exam Back exam: Present: normal inspection - Neurological Exam Neurological exam: Present: alert, oriented X3 - Psychiatric Psychiatric exam: Present: normal affect, normal mood - Skin Skin exam: Present: warm, dry, intact, normal color. Absent: rash ED Course Vital Signs 04/11/17 04/11/17 04/12/17 20:42 22:53 01:43 Temperature 98.4 F 98 F Pulse Rate 112 H 97 H Respiratory 20 18 18 Rate Blood Pressure 155/112 Blood Pressure 160/95 [Left] O2 Sat by Pulse 97 98 Oximetry 04/12/17 02:05 Temperature 98 F Pulse Rate 88 Respiratory 18 Rate Blood Pressure Blood Pressure 142/84 [Left] O2 Sat by Pulse 99 Oximetry - Reevaluation(s) Reevaluation #1: 04/12/17 02:26 Her workup is unremarkable x-ray imaging is unremarkable I will send patient home. ED Medical Decision Making - Lab Data Result diagrams: 04/11/17 22:05 04/11/17 22:05 Lab Results 04/11/17 04/11/17 04/11/17 Range/Units 22:05 22:05 22:05 WBC 14.8 H (4.5-11.0) K/mm3 RBC 4.41 (3.65-5.03) M/mm3 Hgb 9.3 L (10.1-14.3) gm/dl Hct 30.5 (30.3-42.9) % MCV 69 L (79-97) fl MCH 21 L (28-32) pg MCHC 31 (30-34) % RDW 19.7 H (13.2-15.2) % Plt Count 314 (140-440) K/mm3 PT 13.5 (12.2-14.9) Sec. INR 0.98 (0.87-1.13) APTT 30.3 (24.2-36.6) Sec. Sodium 137 (137-145) mmol/L Potassium 3.8 (3.6-5.0) mmol/L Chloride 99.3 (98-107) mmol/L Carbon Dioxide 20 L (22-30) mmol/L Anion Gap 22 mmol/L BUN 26 H (7-17) mg/dL Creatinine 0.9 (0.7-1.2) mg/dL Estimated GFR > 60 ml/min BUN/Creatinine Ratio 28.88 % Glucose 253 H (65-100) mg/dL POC Glucose (70-105) Calcium 9.2 (8.4-10.2) mg/dL 04/11/17 Range/Units 22:19 WBC (4.5-11.0) K/mm3 RBC (3.65-5.03) M/mm3 Hgb (10.1-14.3) gm/dl Hct (30.3-42.9) % MCV (79-97) fl MCH (28-32) pg MCHC (30-34) % RDW (13.2-15.2) % Plt Count (140-440) K/mm3 PT (12.2-14.9) Sec. INR (0.87-1.13) APTT (24.2-36.6) Sec. Sodium (137-145) mmol/L Potassium (3.6-5.0) mmol/L Chloride (98-107) mmol/L Carbon Dioxide (22-30) mmol/L Anion Gap mmol/L BUN (7-17) mg/dL Creatinine (0.7-1.2) mg/dL Estimated GFR ml/min BUN/Creatinine Ratio % Glucose (65-100) mg/dL POC Glucose 252 H (70-105) Calcium (8.4-10.2) mg/dL - Radiology Data Radiology results: report reviewed, image reviewed CT head: Shows no acute intracranial process X-ray right shoulder: Shows no acute osseous injury X-ray right humerus: shows no acute osseous injury - Medical Decision Making Chief medical diagnosis: Humeral neck fracture Differential medical diagnosis: Subdural hematoma, left orbital wall fracture, anemia, hypokalemia, metabolic abnormality Patient will get a CBC, CMP, urinalysis, CT head and x-rays of the affected extremity patient will also give IM analgesic medication Patient's lab work and x-rays and CT scans are unremarkable all send patient home with follow-up precautions to come back to the emergency department. Critical care attestation.: If time is entered above; I have spent that time in minutes in the direct care of this critically ill patient, excluding procedure time. ED Disposition Clinical Impression: Skin abrasion, Hyperglycemia Fall Qualifiers: Encounter type: initial encounter Qualified Code(s): W19.XXXA - Unspecified fall, initial encounter Headache Qualifiers: Headache type: post-traumatic Headache chronicity pattern: acute headache Intractability: not intractable Qualified Code(s): G44.319 - Acute post- traumatic headache, not intractable Right shoulder pain Qualifiers: Chronicity: acute Qualified Code(s): M25.511 - Pain in right shoulder Disposition: DC-01 TO HOME OR SELFCARE Is pt being admited?: No Does the pt Need Aspirin: No Condition: Stable Instructions: Fall Prevention (ED), Fall Prevention for Older Adults (ED) Prescriptions: Acetaminophen [Tylenol] 1,000 mg PO Q6HR PRN #30 tablet PRN Reason: Pain Bacitracin Zinc Oint [Antibiotic Oint] 1 applicatio TP BID #1 tube Referrals: [facility] [Other] - 3-5 Days
== END 2017-04-12 03:02 | disposition home or self-care (01) ==
LOC: ED 20:26
DX: S00.12XA Contusion of left eyelid and periocular area, initial encounter (principal); W18.30XA Fall on same level, unspecified, initial encounter; Y93.9 Activity, unspecified; Y92.9 Unspecified place or not applicable; Y99.9 Unspecified external cause status; G44.319 Acute post-traumatic headache, not intractable; M25.511 Pain in right shoulder; I10 Essential (primary) hypertension; E11.65 Type 2 diabetes mellitus with hyperglycemia; F17.200 Nicotine dependence, unspecified, uncomplicated
CPT/HCPCS: 36415; 70450; 73030; 73060; 80048; 82962; 85027; 85610; 85730; 96372; 99284; J2270